=== PATIENT | female | born 1970 | race Two or more races ===

== ENCOUNTER 2024-10-01 09:28 | Emergency (ER) | payer MEDICAID, SELFPAY ==
--- NOTE | 2024-10-01 09:32 | EKG_ITS ---
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
[2024-10-01 09:35] VITALS: BP 137/88; PULSE 78; RESP 18; TEMP 36.9; O2SAT 97
--- NOTE | 2024-10-01 09:54 | XR_ITS ---
Examination: PA lateral chest 2 views TECHNIQUE: Upright PA lateral chest 2 views Date and time: October 01, 2024 1016 hours Comparison July 22, 2023 INDICATIONS: Chest pain one week, history cardiac surgery one year ago. FINDINGS: Normal heart size Lungs are clear Moderate osteopenia IMPRESSION: No active disease
--- NOTE | 2024-10-01 09:54 | PD.EDRME ---
Rapid Medical Screening Exam RME Arrival date/time: 10/01/24 09:28 54-year-old female presents to the emergency department today with complaints of left upper back pain patient reports history of PA and is concerned because she was told if she ever has back pain to come to the ER immediately Chief Complaint: Chest Pain Vital signs: Vital Signs Temperature 98.4 F 10/01/24 09:35 Pulse Rate 78 10/01/24 09:35 Respiratory Rate 18 10/01/24 09:35 Blood Pressure 137/88 H 10/01/24 09:35 Pulse Oximetry (%) 97 10/01/24 09:35 Oxygen Delivery Method Room Air 10/01/24 09:35
[2024-10-01 10:37] LABS: Basophils # (Auto) 0.1 Thou/mm3 (0.0-0.2); Basophils % (Auto) 1 % (0-2.5); Eosinophils # (Auto) 0.2 Thou/mm3 (0.0-0.5); Eosinophils % (Auto) 3 % (0-10); Hematocrit 47.2 % (36.0-46.0); Hemoglobin 16.3 g/dL (12.0-16.0); Immature Granulocytes % (Auto) 1 % (0-0); Immature Granulocytes Auto 0.04 Thou/mm3 (0.00-0.00); Lymphocytes # (Auto) 1.9 Thou/mm3 (1.0-4.8); Lymphocytes % (Auto) 26 % (10-50); Mean Corpuscular HGB Conc 34.5 g/dl (31.0-37.0); Mean Corpuscular Hemoglobin 30.3 pg (25.0-35.0); Mean Corpuscular Volume 88 fL (80-100); Monocytes # (Auto) 0.4 Thou/mm3 (0.0-0.8); Monocytes % (Auto) 6 % (0-12); Neutrophils # (Auto) 4.7 Thou/mm3 (1.8-7.7); Neutrophils % (Auto) 64 % (37-80); Nucleated Red Blood Cell % 0 /100 WBC (0); Platelet Count 240 Thou/mm3 (140-440); RDW Standard Deviation 43.1 fL (36.4-46.3); Red Blood Count 5.38 Miln/mm3 (4.00-5.20); White Blood Count 7.3 Thou/mm3 (3.6-11.0)
[2024-10-01 10:54] LABS: INR 1.1 (0.9-1.3); Partial Thromboplastin Time 28.3 Seconds (22.0-36.0); Prothrombin Time 11.8 Seconds (9.0-12.2)
[2024-10-01 10:58] LABS: B-Type Natriuretic Peptide 35 pg/mL (0-100)
[2024-10-01 11:01] LABS: Alanine Aminotransferase 24 U/L (10-49); Albumin, Serum 4.1 gm/dL (3.5-5.0); Albumin/Globulin Ratio 1.7 (1.2-2.2); Alkaline Phosphatase 121 U/L (46-116); Anion Gap 10 (7-16); Aspartate Amino Transferase 22 U/L (0-34); BUN/Creatinine Ratio 20 Ratio (12-20); Bilirubin,Total 1.1 mg/dL (0.3-1.2); Blood Urea Nitrogen 14 mg/dL (9-23); Calcium 8.9 mg/dL (8.3-10.6); Calcium (Corrected) 8.9 mg/dL (8.5-10.1); Carbon Dioxide 27.8 mMol/L (20.0-31.0); Chloride 106 mMol/L (98-107); Creatinine (Component) 0.7 mg/dL (0.6-1.3); Globulin 2.4 gm/dL (2.3-3.5); Glucose 107 mg/dL (74-106); Magnesium 1.9 mg/dL (1.6-2.6); Osmolality,Calculated 287 (275-295); Potassium 3.9 mMol/L (3.4-5.1); Sodium 144 mMol/L (136-145); Total Protein 6.5 gm/dL (5.7-8.2); Troponin I < 0.020 ng/mL (0.0-0.045); eGFR > 60 See Note
[2024-10-01 12:26] VITALS: BP 151/93; PULSE 72; RESP 17; TEMP 36.6; O2SAT 98
[2024-10-01 13:12] LABS: Troponin I < 0.020 ng/mL (0.0-0.045)
[2024-10-01 14:03] VITALS: BP 148/76; PULSE 76; RESP 16; O2SAT 97
--- NOTE | 2024-10-01 14:07 | PD.EDCHEST ---
ED Chest Pain RME/HPI General Chief Complaint: Chest Pain Stated Complaint: CHEST PAIN RADIATING TO BACK; HX MAKER PA Time Seen by Provider: 10/01/24 12:30 Source: patient Arrival date/time: 10/01/24 09:28 Limitations: no limitations RME / HPI RME / HPI narrative: 54-year-old female with a history of posterior PA is here today with intermittent pain at her left scapula. She denies any anterior chest wall pain or shoulder pain. Has no shortness of breath. She has no abdominal pain, nausea, or vomiting. No near-syncope episodes. No lower leg edema or exertional dyspnea. She has no orthopnea. She does have a remote history of stenting from her posterior PA. She is on blood thinners including Plavix. She states her symptom onset was yesterday afternoon. She has no other acute complaints at this time. MD complaint: chest pain Duration: intermittent and now resolved Quality: aching Related Data Previous Rx's ?Medication ?Instructions ?Recorded methocarbamol 750 mg tablet 750 mg PO Q8H PRN pain #20 tabs 10/01/24 Allergies Allergy/AdvReac Type Severity Reaction Status Date / Time No Known Allergies Allergy Verified 10/01/24 09:31 Review of Systems Review of Systems Systems Reviewed: All systems reviewed, normal except as documented ED Exam General Limitations: Present no limitations General appearance: Present alert and in no apparent distress Head Head exam: Present atraumatic Eye Eye exam: Present normal appearance, PERRL and EOMI ENT ENT exam: Present normal exam, normal oropharynx and mucous membranes moist Neck Neck exam: Present normal inspection, full ROM and trachea midline Chest Chest inspection: Present normal inspection and symmetric chest wall rise Respiratory Respiratory exam: Present normal lung sounds bilaterally Cardiovascular Cardiovascular exam: Present regular rate, normal rhythm and normal heart sounds Abdominal Exam Abdominal exam: Present soft and normal bowel sounds Extremities Exam Extremities exam: Present normal inspection and full ROM Back Exam Back exam: Present normal inspection and full ROM Neurological Exam Neurological exam: Present alert, oriented X3 and CN II-XII intact Psychiatric Psychiatric exam: Present normal affect and normal mood Skin Skin exam: Present warm, dry, intact and normal color Course Quality Measures none Orders Category Date Time Status EKG (ED ONLY) *Do not use* NOW Care 10/01/24 09:32 Completed EKG (ED Only) Stat Exams 10/01/24 09:32 Draft XR chest 2V Stat Exams 10/01/24 09:54 Completed B-Type Natriuretic Peptide Stat Lab 10/01/24 10:00 Completed CBC Stat Lab 10/01/24 10:00 Completed Comprehensive Metabolic Panel Stat Lab 10/01/24 10:00 Completed Magnesium Stat Lab 10/01/24 10:00 Completed Partial Thromboplastin Time Stat Lab 10/01/24 10:00 Completed Prothrombin Time with INR Stat Lab 10/01/24 10:00 Completed Troponin I Stat Lab 10/01/24 10:00 Completed Troponin I Stat Lab 10/01/24 12:41 Completed Vital Signs Vital signs: Vital Signs Temperature 98.4 F 10/01/24 09:35 Pulse Rate 78 10/01/24 09:35 Respiratory Rate 18 10/01/24 09:35 Blood Pressure 137/88 H 10/01/24 09:35 Pulse Oximetry (%) 97 10/01/24 09:35 Oxygen Delivery Method Room Air 10/01/24 09:35 Chest Pain MDM Narrative MDM Narrative:: 54-year-old female with a history of posterior MIs here today with pain under her left scapula. Denies any falls or injuries. She has no exertional symptoms. Her work appears essentially unremarkable including serial troponins. Her pain is reproducible with palpation. I do believe the patient can be discharged from the ER. Patient be discharged without ER with a prescription of Robaxin. She agrees to follow-up in clinic as needed. Return precautions were discussed. She agrees return as needed for any worsening or emergent changes Patient data External records reviewed:: Other (specify) Clinical information provided by:: patient Social determinants that could affect healthcare access:: none Patient has the following chronic illnesses:: Hypertension, anticoagulated for prior cardiac stenting How is presenting disease/condition affected by chronic disease/condition?: uneffected by Evaluation data The following diagnostics were reviewed and interpreted by me:: lab results, radiology exam(s), EKG tracing(s) and other (specify) Lab and/or radiology exams considered but not ordered:: n/a Interpretation Summary: CBC reveals no leukocytosis. Metabolic panel is unremarkable. Chest reveals clear spinal anxiety [place] for trait. EKG reveals normal sinus rhythm with no ST changes or dynamic T waves. 2 troponins are negative. Medications / Prescriptions Medications or Prescriptions considered but not ordered:: n/a Medication administrations:: n/a Consultations Consultation(s) initiated? (list below): No Diagnosis Chest Pain Differential Diagnosis: unstable angina pectoris, atypical chest pain, st elevation myocardial infarction, costochondritis and chest pain Most likely diagnosis given after review of the tests above:: Thoracic strain Admission Indicated Admission indicated?: not indicated Admission Request Was there a request for admission?: No Disposition Plan Disposition Plan: Discharge Discharge Attestation Discharge Attestation: The patient and all family members were given an opportunity to ask questions and understood the discharge instructions. Discharge instructions specifically effects, indications for sooner follow up or return to the emergency department, and the expected course of current diagnosis. Patient condition: Stable Discharge Plan Plan Patient Disposition: HOME (Self Care) Patient condition on transfer: Stable Prescriptions/Referrals Prescriptions/Med Rec: New methocarbamol 750 mg tablet 750 mg PO Q8H PRN (Reason: pain) Qty: 20 0RF Referrals: Tatiana Sauer PA-C [Primary Care Provider] - In 1 week Problem List Clinical Impression: Sprain, thoracic Patient/Caregiver Discharge Instructions Education Materials: ED Back Sprain/Strain Additional Instructions: -Use the provided medication as prescribed. -Follow up with our primary doctor as needed. -Return here for any emergent changes. Print Language: Serbian Stand Alone Forms: Sherry Award Info., Patient Portal Info Letter
== END 2024-10-01 14:07 | disposition home or self-care (01) ==
PROVIDERS: Nurse Practitioner Primary Care; Physician Assistant Medical; Emergency Provider Family Medicine; PCP Physician Assistant Medical
DX: S23.3XXA Sprain of ligaments of thoracic spine, initial encounter (principal); X58.XXXA Exposure to other specified factors, initial encounter; I25.2 Old myocardial infarction; M85.88 Other specified disorders of bone density and structure, other site; R07.9 Chest pain, unspecified
CPT/HCPCS: 36415; 71046; 80053; 83735; 83880; 84484; 85025; 85610; 85730; 93005; 99283

== ENCOUNTER 2025-03-19 18:52 | Emergency (ER) | payer MEDICAID, SELFPAY ==
--- NOTE | 2025-03-19 18:57 | EKG_ITS ---
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
--- NOTE | 2025-03-19 19:24 | XR_ITS ---
EXAMINATION: PA chest single view TECHNIQUE: Upright PA chest single view Date and time: March 19, 2025, 1950 hours INDICATION: Chest pain shortness of breath today. FINDINGS: Normal heart size Lungs are clear. Osseous rectors are intact IMPRESSION: No active disease
[2025-03-19 19:25] VITALS: BP 152/91; PULSE 78; RESP 18; TEMP 37.1; O2SAT 95; BMI 41.5
--- NOTE | 2025-03-19 19:25 | PD.EDRME ---
Rapid Medical Screening Exam RME Arrival date/time: 03/19/25 18:52 This is a case of 54-year-old female who have history of hypertension diabetes myocardial infarction had a stent last year came in in the emergency room due to chest pain and shortness of breath today persistence of the symptoms this patient decided to sought consult here in the emergency room Chief Complaint: General Adult/Misc Complain Time Seen by Provider: 03/19/25 18:59 Exam: Normal rate regular rhythm no murmur murmur clear breath sound Clinical Impression: Chest pain
[2025-03-19 20:26] LABS: Collection Type, Urine Clean Catch
[2025-03-19 20:36] LABS: Basophils # (Auto) 0.1 Thou/mm3 (0.0-0.2); Basophils % (Auto) 1 % (0-2.5); Eosinophils # (Auto) 0.2 Thou/mm3 (0.0-0.5); Eosinophils % (Auto) 2 % (0-10); Hematocrit 46.0 % (36.0-46.0); Hemoglobin 15.8 g/dL (12.0-16.0); Immature Granulocytes Auto 0.02 Thou/mm3 (0.00-0.00); Lymphocytes # (Auto) 2.5 Thou/mm3 (1.0-4.8); Lymphocytes % (Auto) 32 % (10-50); Mean Corpuscular HGB Conc 34.3 g/dl (31.0-37.0); Mean Corpuscular Hemoglobin 29.9 pg (25.0-35.0); Mean Corpuscular Volume 87 fL (80-100); Monocytes # (Auto) 0.5 Thou/mm3 (0.0-0.8); Monocytes % (Auto) 7 % (0-12); Neutrophils # (Auto) 4.5 Thou/mm3 (1.8-7.7); Neutrophils % (Auto) 58 % (37-80); Nucleated Red Blood Cell # 0.00 Thou/mm3 (0.00-0.00); Nucleated Red Blood Cell % 0 /100 WBC (0); Platelet Count 261 Thou/mm3 (140-440); RDW Standard Deviation 41.1 fL (36.4-46.3); Red Blood Count 5.29 Miln/mm3 (4.00-5.20); White Blood Count 7.8 Thou/mm3 (3.6-11.0)
[2025-03-19 20:41] LABS: Bilirubin,Urine Negative (Negative); Blood,Urine 2+ (Negative); Clarity,Urine Clear (Clear/Hazy); Color,Urine Yellow (Lt Yel-Yel); Glucose, Urine Negative (Negative); Ketones,Urine Negative (Negative); Leukocyte Esterase,Urine Positive (Negative); Nitrite,Urine Negative (Negative); PH,Urine 6.5 (5.0-7.0); Protein,Urine Negative (Neg - Trace); RBC,Urine 6 /hpf (0-3); Specific Gravity,Urine 1.025 (1.001-1.035); Squamous Epithelial Cell,Urine 3 /hpf (0-5); Urobilinogen,Urine 2.0 mg/dL (0.0-1.0); WBC,Urine 17 /hpf (0-5)
[2025-03-19 20:47] LABS: HCG Qualitative,Urine Negative
[2025-03-19 20:51] LABS: Alanine Aminotransferase 25 U/L (10-49); Albumin, Serum 4.5 gm/dL (3.5-5.0); Albumin/Globulin Ratio 1.6 (1.2-2.2); Alkaline Phosphatase 114 U/L (46-116); Anion Gap 11 (7-16); Aspartate Amino Transferase 23 U/L (0-34); BUN/Creatinine Ratio 17 Ratio (12-20); Bilirubin,Total 0.6 mg/dL (0.3-1.2); Blood Urea Nitrogen 12 mg/dL (9-23); Calcium 9.6 mg/dL (8.3-10.6); Calcium (Corrected) 9.6 mg/dL (8.5-10.1); Carbon Dioxide 26.7 mMol/L (20.0-31.0); Chloride 106 mMol/L (98-107); Creatinine (Component) 0.7 mg/dL (0.6-1.3); Estimated Creatinine Clearance 100.9 mL/min (>60); Globulin 2.8 gm/dL (2.3-3.5); Glucose 108 mg/dL (74-106); Osmolality,Calculated 287 (275-295); Potassium 3.9 mMol/L (3.4-5.1); Sodium 144 mMol/L (136-145); Total Protein 7.3 gm/dL (5.7-8.2); Troponin I < 0.020 ng/mL (0.0-0.045); eGFR > 60 See Note
[2025-03-19 20:55] LABS: B-Type Natriuretic Peptide < 20 pg/mL (0-100)
--- NOTE | 2025-03-19 23:19 | EDNOTE_ITS ---
ED General RME/HPI General Chief complaint: General Adult/Misc Complain Stated complaint: L) LIP TURNED UNDER Time Seen by Provider: 03/19/25 18:59 Arrival date/time: 03/19/25 18:52 Limitations: no limitations RME / HPI RME / HPI narrative: 03/19/25 18:52 This is a case of 54-year-old female who have history of hypertension diabetes myocardial infarction had a stent last year came in in the emergency room due to chest pain and shortness of breath today persistence of the symptoms this patient decided to sought consult here in the emergency room ------- Dr. Zepeda's Main ED Evaluation: 54yo female with a history of DM, HTN, OH last year presents to the ED for a chief complaint of chest pain x 1800. Patient states her son noticed that her left side of the lip was drooping more than normal just TAILOR GARMENT FITTER. Patient started having chest discomfort and was concerned, so she came in for evaluation. Personal Development Mentor is Dr. Aziz. FORREST. Related Data Previous Rx's ?Medication ?Instructions ?Recorded methocarbamol 750 mg tablet 750 mg PO Q8H PRN pain #20 tabs 10/01/24 Allergies Allergy/AdvReac Type Severity Reaction Status Date / Time No Known Allergies Allergy Verified 03/19/25 18:55 Review of Systems Review of Systems Systems Reviewed: All systems reviewed, normal except as documented Past Medical History Past Medical History CARDIAC: Positive Cardiac Disorders and Hypertension; Negative Congestive Heart Failure RESPIRATORY: Negative Chronic Obstructive Pulmonary Disease (COPD) or Asthma GENITOURINARY: Negative Renal Disease ENDOCRINE: Positive Diabetes Mellitus Type 2; Negative Diabetes Mellitus Type 1 HEMATOLOGIC: Negative Sickle Cell Disease Surgical History SURGICAL: Positive Hysterectomy Social History SMOKING STATUS: Never smoker ED Exam General Limitations: Present no limitations General appearance: Present alert and in no apparent distress Head Head exam: Present atraumatic Eye Eye exam: Present normal appearance, PERRL and EOMI ENT ENT exam: Present normal exam, normal oropharynx and mucous membranes moist Neck Neck exam: Present normal inspection, full ROM and trachea midline Chest Chest inspection: Present normal inspection and symmetric chest wall rise Respiratory Respiratory exam: Present normal lung sounds bilaterally Cardiovascular Cardiovascular exam: Present regular rate, normal rhythm and normal heart sounds Abdominal Exam Abdominal exam: Present soft and normal bowel sounds Extremities Exam Extremities exam: Present normal inspection and full ROM Back Exam Back exam: Present normal inspection and full ROM Neurological Exam Neurological exam: Present alert, oriented X3 and CN II-XII intact Psychiatric Psychiatric exam: Present normal affect and normal mood Skin Skin exam: Present warm, dry, intact and normal color Course Quality Measures none Orders Category Date Time Status EKG (ED ONLY) *Do not use* NOW Care 03/19/25 18:[address] head/brain wo con Stat Exams 03/20/25 00:28 Taken EKG (ED Only) Stat Exams 03/19/25 18:57 Draft XR chest 1V Stat Exams 03/19/25 19:24 Completed BNP [B-Type Natriuretic Peptide] Stat Lab 03/19/25 20:13 Completed CBC Stat Lab 03/19/25 20:13 Completed Comprehensive Metabolic Panel Stat Lab 03/19/25 20:13 Completed HCG Qualitative,Urine Stat Lab 03/19/25 20:12 Completed Troponin I Stat Lab 03/19/25 20:13 Completed Troponin I Stat Lab 03/19/25 23:00 Completed Urinalysis Stat Lab 03/19/25 20:12 Completed Vital Signs Vital signs: Vital Signs Temperature 98.7 F 03/19/25 19:25 Pulse Rate 78 03/19/25 19:25 Respiratory Rate 18 03/19/25 19:25 Blood Pressure 152/91 H 03/19/25 19:25 Pulse Oximetry (%) 95 03/19/25 19:25 Oxygen Delivery Method Room Air 03/19/25 19:25 Discharge Plan Plan Patient Disposition: HOME (Self Care) Patient condition on transfer: Stable Prescriptions/Referrals Prescriptions/Med Rec: No Action methocarbamol 750 mg tablet 750 mg PO Q8H PRN (Reason: pain) Qty: 20 0RF Referrals: No Primary/Family,Physician [Primary Care Provider] - In 1 week Problem List Clinical Impression: Atypical chest pain Patient/Caregiver Discharge Instructions Education Materials: ED Chest Pain, Uncertain Cause Additional Instructions: Return to the emergency department worsening symptoms, or any other concerns. Follow-up with your primary care in the next 3 to 5 days. Continue your medications as per your primary care physician. Print Language: South Sudanese Stand Alone Forms: Sherry Award Info., Patient Portal Info Letter MDM Narrative MDM hospital course (for use when minimal MDM required): Scribe Attestation: 03/19/25 Lorena Jolly am scribing for and in the presence of Dr. Zepeda. Clinical Information Provided by: patient Medical Records reviewed [facility] (Per chart review, patient was seen here on 10/01/24 for thoracic sprain.) Meds/Rx considered, not ordered None Labs/Rad/Tests considered, not ordered None Chronic Illness/Social Conditions Explain: Hx DMII, HTN EKG Interpretation EKG #1: EKG Interpretation: EKG done at 1941, sinus rhythm, rate of 70, normal intervals, normal axis, no acute ST or T wave changes, according to my interpretation. Labs Labs: interpreted by me Lab(s) Interpretation(s): CBC normal, CMP normal, initial Troponin normal, BNP normal, UA unremarkable. Imaging Imaging interpretation: interpreted by [facility] Interpretation(s): [facility] Report Signed Patient: NAVIN VELASCO [facility]. Record#: [id number] Birthdate: 1970 Age/Sex: 54 / F Location: [facility] Attending Dr: Ordering Physician: Mauro Flynn Date of Service: 03/19/25 Procedure(s): XR chest 1V Accession Number(s): [id number] cc: Carson Dey MD; NO PRIMARY/FAMILY,PHYSICIAN; Mauro Flynn~ EXAMINATION: PA chest single view TECHNIQUE: Upright PA chest single view Date and time: March 19, 2025, 1950 hours INDICATION: Chest pain shortness of breath today. FINDINGS: Normal heart size Lungs are clear. Osseous rectors are intact IMPRESSION: No active disease Dictated By: Carson Dey MD Signed By: <Electronically signed by Carson Dey MD in OV> 03/19/252049 [place] Preliminary Report Draft Patient: NAVIN VELASCO [facility]. Record#: [id number] Birthdate: 1970 Age/Sex: 54 / F Location: [facility] Attending Dr: Ordering Physician: Date of Service: Procedure(s): Accession Number(s): cc: ~ CT scan of the head without intravenous contrast (axial sections with sagittal and coronal reformats). March 20, 2025 0120 hours Clinical History: 54 yo with Chest pain and left facial swellim Comparison: None Findings: There is involutional atrophy of the cerebral hemispheres and cerebellum. Possible small left middle cranial fossa arachnoid cyst noted. There is no intracranial hemorrhage, extra-axial collection, mass, mass-effect or midline shift. There is good de los santos-white differentiation. There is no CT evidence of acute large vascular territorial infarct. Ventricles are not enlarged or effaced. There is atherosclerotic calcification along the intracranial vertebral arteries and carotid siphons. Visualized paranasal sinuses and tympanomastoid cavities are clear. The bony calvarium is intact. Impression: No intracranial hemorrhage, mass-effect or midline shift. No CT evidence of acute large vascular territorial infarct. Report Electronically Signed By: Alberto Kapadia 03/20/2025 2:03:04 AM [EST] Medication Administration(s) none Diagnosis Differential Diagnosis ED Complaint MDM: atypical chest pain, NSTEMI, electrolyte abnormality
[2025-03-19 23:23] VITALS: BP 161/92; PULSE 77; RESP 19; TEMP 36.6; O2SAT 99
[2025-03-19 23:44] LABS: Troponin I < 0.020 ng/mL (0.0-0.045)
--- NOTE | 2025-03-20 00:28 | XR_ITS ---
Examination: CT brain head without contrast. 2-D sagittal coronal reconstructions Date and time of exam: March 20, 2025, 0120 hours INDICATIONS: Chest pain and left facial swelling today CTDI: vol (mGy): 54 DLP: (mGycm):1062 Technique: Multiple CT axial sections of the brain have been obtained, 5 mm slice thickness. Contrast has not been administered. 2-D sagittal, coronal reconstructions have been obtained Low dose protocols were performed. One or more of the following dose reduction techniques were used; automated exposure control, adjustment of the mA and/or KV according to patient size, use of iterative reconstruction technique. Findings: No significant ventricular enlargement. Intra-axial or extra-axial hemorrhage density is not seen. No mass effect or midline shift Basal cisterns are not remarkable. Fourth ventricle is midline. Cranial vault intact. Impression: Negative for acute hemorrhage, mass effect or midline shift Advise clinical correlation and follow-up accordingly
[2025-03-20 01:27] VITALS: BP 133/87; PULSE 75; RESP 18; TEMP 36.5; O2SAT 97
--- NOTE | 2025-03-20 02:02 | PRELIM_ITS ---
CT scan of the head without intravenous contrast (axial sections with sagittal and coronal reformats). March 20, 2025 0120 hours Clinical History: 54 yo with Chest pain and left facial swellim Comparison: None Findings: There is involutional atrophy of the cerebral hemispheres and cerebellum. Possible small left middle cranial fossa arachnoid cyst noted. There is no intracranial hemorrhage, extra-axial collection, mass, mass-effect or midline shift. There is good de los santos-white differentiation. There is no CT evidence of acute large vascular territorial infarct. Ventricles are not enlarged or effaced. There is atherosclerotic calcification along the intracranial vertebral arteries and carotid siphons. Visualized paranasal sinuses and tympanomastoid cavities are clear. The bony calvarium is intact. Impression: No intracranial hemorrhage, mass-effect or midline shift. No CT evidence of acute large vascular territorial infarct. Report Electronically Signed By: Alberto Kapadia 03/20/2025 2:03:04 AM [EST]
[2025-03-20 02:10] VITALS: RESP 18
== END 2025-03-20 02:10 | disposition home or self-care (01) ==
PROVIDERS: Nurse Practitioner Family; Emergency Provider Emergency Medicine
DX: R07.89 Other chest pain (principal); R06.02 Shortness of breath; R22.0 Localized swelling, mass and lump, head; R94.31 Abnormal electrocardiogram [ECG] [EKG]
CPT/HCPCS: 36415; 70450; 71045; 80053; 81001; 81025; 83880; 84484; 85025; 93005; 99283